=== PATIENT | female | born 1960 | race Caucasian/White ===

== ENCOUNTER → 2020-10-22 | Day surgery (SDC) | payer BC ==
--- NOTE | 2020-10-21 12:24 | PCM.PREANE ---
Preanesthetic Assessment - Procedure Proposed Procedure: Colonoscopy - Anesthesia/Transfusion/Family Hx Anesthesia History: Prior Anesthesia Without Reaction Family History of Anesthesia Reaction: No Transfusion History: No Prior Transfusion(s) Intubation History: Unknown - Review of Systems General: No Symptoms Pulmonary: No Symptoms Cardiovascular: No Symptoms Gastrointestinal: Diarrhea (from colon prep) Neurological: No Symptoms Other: Reports: Easy Bruising, Thyroid Problems, Depression, Anxiety - Physical Assessment NPO Status Date: 10/22/20 NPO Status Time: 04:00 (Prep finished at 0400 this morning; last food was two days ago) Vital Signs: BP 145/80 HR 74 RR 16 97% RA 97.3 Height: 1.6 m Weight: 64 kg ASA Class: 2 Mental Status: Alert & Oriented x3 Dentition: Reports: Normal Dentition, [place](s), [place] Thyro-Mental Finger Breadths: 3 Mouth Opening Finger Breadths: 3 ROM/Head Extension: Full Lungs: Clear to Auscultation, Normal Respiratory Effort Cardiovascular: Regular Rate, Regular Rhythm - Allergies Allergies/Adverse Reactions: Allergies Allergy/AdvReac Type Severity Reaction Status Date / Time amoxicillin [From Augmentin] Allergy Other Verified 10/21/20 11:09 clavulanic acid Allergy Other Verified 10/21/20 11:09 [From Augmentin] erythromycin base Allergy Cannot Verified 10/21/20 11:09 Remember house dust Allergy Cannot Verified 10/21/20 11:09 Remember mold Allergy Other Verified 10/21/20 11:09 butyl acetate Allergy Cannot Uncoded 10/21/20 11:09 Remember - Blood Blood Available: No Product(s) Available: None - Anesthesia Plan Pre-Op Medication Ordered: None - Acknowledgements Anesthesia Type Planned: MAC Pt an Appropriate Candidate for the Planned Anesthesia: Yes Alternatives and Risks of Anesthesia Discussed w Pt/Guardian: Yes Pt/Guardian Understands and Agrees with Anesthesia Plan: Yes PreAnesthesia Questionnaire HEENT History: Reports: Other (See Below) Other HEENT History: eye swelling, allergic rhinitis, pharyngitis Cardiovascular History: Reports: High Cholesterol Respiratory History: Reports: Sleep Apnea, Other (See Below) Other Respiratory History: cough, snoring, wears CPAP Gastrointestinal History: Reports: Chronic Constipation, Chronic Diarrhea, Diverticulosis, GERD, Hiatal Hernia, Irritable Bowel Syndrome, Other (See Below) Other Gastrointestinal History: liver cyst, gastroparesis Genitourinary History: Reports: None SUSTAINABILITY ENGINEER History: Reports: Other (See Below) Other OB/BYN History: hot flashes, post menopausal, ovarian cyst Musculoskeletal History: Reports: Arthritis, Other (See Below) Other Musculoskeletal History: muscle spasms, osteopenia Neurological History: Reports: Migraines Psychiatric History: Reports: Anxiety, Depression, Other (See Below) Other Psychiatric History: hypersomnia, insomnia Endocrine/Metabolic History: Reports: Hypothyroidism, Osteopenia Hematologic History: Reports: None Immunologic History: Reports: None Oncologic (Cancer) History: Reports: Thyroid Dermatologic History: Reports: Other (See Below) Other Dermatologic History: onchomycosis, skin tags, atopic dermatitis - Past Surgical History HEENT Surgical History: Reports: None Cardiovascular Surgical History: Reports: None Respiratory Surgical History: Reports: None GI Surgical History: Reports: Appendectomy, Colonoscopy Female Surgical History: Reports: Breast Implant, Section, D&C Male Surgical History: Reports: None Endocrine Surgical History: Reports: Thyroidectomy Oncologic Surgical History: Reports: None Dermatological Surgical History: Reports: None - SUBSTANCE USE Tobacco Use Status *Q: Never Tobacco User Tobacco Use Within Last Twelve Months: No Second Hand Smoke Exposure: No Days Per Week of Alcohol Use: 0 Number of Drinks Per Day: 0 Total Drinks Per Week: 0 Recreational Drug Use History: No - HOME MEDS Home Medications: Home Meds Levothyroxine [Synthroid] 100 mg PO MOTUTHFRSA 11/26/15 [History] Omeprazole 20 mg PO DAILY 11/26/15 [History] Venlafaxine [Effexor XR] 75 mg PO DAILY 11/26/15 [History] Zolpidem Tartrate [Ambien] 5 mg PO DAILY PRN 11/26/15 [History] Celecoxib 200 mg PO DAILY 10/21/20 [History] Cyclobenzaprine [Flexeril] 10 mg PO BEDTIME PRN 10/21/20 [History] Estriol 1 dose TOP DAILY 10/21/20 [History] LORazepam [Ativan] 0.25 - 0.5 mg PO BEDTIME PRN 10/21/20 [History] Progesterone, Micronized [Progesterone Micronized] 1 dose TOP DAILY 10/21/20 [History] Rosuvastatin [Crestor] 10 mg PO DAILY 10/21/20 [History] SUMAtriptan succinate [Imitrex] 100 mg PO ASDIRECTED PRN 10/21/20 [History] Terbinafine HCl 250 mg PO DAILY 10/21/20 [History] methocarbamoL [Robaxin] 500 mg PO ASDIRECTED PRN 10/21/20 [History] valACYclovir HCl [valACYclovir] 1,000 mg PO ASDIRECTED PRN 10/21/20 [History] - CURRENT (IN HOUSE) MEDS Current Meds: Current Medications Lactated Ringer's (Ringers, Lactated) 1,000 mls @ 125 mls/hr IV ASDIRECTED CARMINA Stop: 10/22/20 23:00 Lidocaine/Sodium Bicarbonate (Lidocaine 1%/Sod Bicarbonate In Ns 8.4% 1 Ml Syringe) 0.25 ml IDERM ONETIME PRN PRN Reason: Prior to IV Start Stop: 10/22/20 18:00 Sodium Chloride (Sodium Chloride 0.9% 10 Ml Syringe) 10 ml FLUSH ASDIRECTED PRN PRN Reason: Keep Vein Open Stop: 10/22/20 18:00
[~2020-10-22] MED LIST: Lactated Ringers 1,000 ML IV SCH; Lactated Ringers 1,000 ML ONE; Lidocaine 1% 4 ML ONE; Lidocaine 1%/Sod Bicarbonate in NS 8.4% 1 ML Syringe IDERM PRN; Midazolam 1 MG/ML 2 ML SDV ONE; Propofol 200 MG/20 ML SDV ONE; Sodium Chloride 0.9% 10 ML Syringe FLUSH PRN
--- NOTE | 2020-10-22 13:02 | PCM.PRNOTE ---
- Free Text/Narrative Note: Date: 10/22/2020 Procedure: screening colonoscopy History: normal colonoscopy about 10 years ago, history of diverticulitis Endoscopist: Deepak Hardin MD Findings: tricky to navigate rectosigmoid junction, but cecum was reached and terminal ileum intubated. Prep was excellent. No gross inflammatory changes noted. Few scattered diverticula. Small polyp that looked like an inflammatory polyp in rectum. Internal and external hemorrhoids. Detailed Report: The patient was taken to the endoscopy suite and placed in left lateral decubitus position. Timeout was performed and monitored anesthesia care was initiated. On visual inspection of the anus there were sizable external hemorrhoidal skin tags. Digital rectal exam was unremarkable. The colonoscope was inserted and advanced all the way to the cecum. It was a bit of a challenge to navigate the rectosigmoid junction due to a twisting and a tight turn, but this was done safely. The terminal ileum was intubated and mucosa appeared normal. The scope was slowly withdrawn through the colon and mucosal surfaces carefully inspected. There were a few scattered diverticula in the sigmoid colon. Prep was excellent. Within the proximal portion of the rectum a small polyp that looks like an inflammatory polyp was identified and removed using a snare. The specimen was successfully retrieved. On retroflexion within the rectum, sizable internal hemorrhoids were noted. Air was suctioned from the distal colon and rectum prior to withdrawal of the scope. The patient tolerated the procedure well.
--- NOTE | 2020-10-22 13:12 | PCM48HPAN ---
Post Anesthesia Note - EVALUATION WITHIN 48HRS OF ANESTHETIC Vital Signs in Normal Range: Yes Patient Participated in Evaluation: Yes Respiratory Function Stable: Yes Airway Patent: Yes Cardiovascular Function Stable: Yes Hydration Status Stable: Yes Pain Control Satisfactory: Yes Nausea and Vomiting Control Satisfactory: Yes Mental Status Recovered: Yes Vital Signs: Vital signs into Phase 2: BP 119/70 HR 84 RR 20 97.7 97 RA
[2020-10-22 14:41] VITALS: PULSE 81
[2020-10-22 14:47] VITALS: BP 134/67
== END | disposition home or self-care (01) ==
LOC: JD.SDS 10:34
PROVIDERS: ATTEND Surgery
DX: Z12.11 Encounter for screening for malignant neoplasm of colon (principal); K52.9 Noninfective gastroenteritis and colitis, unspecified; K63.5 Polyp of colon; K57.30 Diverticulosis of large intestine without perforation or abscess without bleeding; K64.4 Residual hemorrhoidal skin tags; K64.8 Other hemorrhoids; E78.00 Pure hypercholesterolemia, unspecified; E03.9 Hypothyroidism, unspecified; E78.2 Mixed hyperlipidemia; G47.33 Obstructive sleep apnea (adult) (pediatric); Z88.1 Allergy status to other antibiotic agents; Z88.8 Allergy status to other drugs, medicaments and biological substances; Z79.899 Other long term (current) drug therapy
CPT/HCPCS: 45385; J2250; J2704; J7120; 00812